=== PATIENT | male | born 1960 | race Caucasian/White ===

== ENCOUNTER 2016-12-04 08:36 | Emergency (ER) | payer BC ==
[2016-12-04] MEDS ORDERED: Sodium Chloride 0.9% 10 ML Syringe FLUSH PRN (10:33)
[2016-12-04] MEDS ORDERED: Sodium Chloride 0.9% 1,000 ML IV SCH (10:45)
--- NOTE | 2016-12-04 10:46 | EDM.PDOC ---
ED HPI GENERAL MEDICAL PROBLEM - General Chief Complaint: General Stated Complaint: SWELLING ON NECK Time Seen by Provider: 12/04/16 10:41 Source of Information: Reports: Patient, Family, RN Notes Reviewed History Limitations: Reports: No Limitations - History of Present Illness INITIAL COMMENTS - FREE TEXT/NARRATIVE: A 56-year-old gentleman presents emergency department day complaint of right- sided neck swelling, he is post operative cervical disc surgery approximately 6 months ago. He has a known history of pulmonary embolism was placed on xeralto unfortunately 6 days postop he developed a hematoma in his neck that required evacuation. That was on October 21. He was subsequently placed on eloquis has done well with that medication until today when he awoke developing a hematoma on the right side of his neck anterior portion states no difficulty with breathing however does have difficulty with swallowing he is able to still swallow his saliva but has not tried any water this morning, - Related Data Allergies Allergy/AdvReac Type Severity Reaction Status Date / Time oxycodone AdvReac Mild Itching Verified 12/15/14 11:23 Home Meds: Home Meds Aspirin [Halfprin] 81 mg PO DAILY 12/12/14 [History] Cyclobenzaprine [Flexeril] 5 mg PO Q6HR PRN 12/12/14 [History] Omeprazole [Prilosec] 20 mg PO DAILY 12/12/14 [History] amLODIPine/Valsartan [Amlodipine-Valsartan 10-160 mg] 1 tab PO DAILY 12/12/14 [ History] Carisoprodol [Soma] 350 mg PO QID PRN 12/15/14 [History] HYDROmorphone HCl [Dilaudid] 4 mg PO Q4H 12/15/14 [History] Carvedilol 3.125 mg PO BID 02/26/16 [History] Zolpidem [Ambien] 10 mg PO DAILY 02/26/16 [History] Apixaban [Eliquis] 5 mg PO BID 12/04/16 [History] Hydrocodone/Acetaminophen [Hydrocodon-Acetaminophen 5-325] 1 each PO PRN [History] Past Medical History Cardiovascular History: Reports: Hypertension Musculoskeletal History: Reports: Other (See Below) Other Musculoskeletal History: Mri years ago with disc involvment. neck fusion on October 2016 then swelling and hematoma on right side of neck. surgery for I & D and on vent for 2 days Oncologic (Cancer) History: Reports: Malignant Melanoma, Prostate Other Oncologic History: 7 years ago- radiation Dermatologic History: Reports: Melanoma - Past Surgical History Other Cardiovascular Surgeries/Procedures: angiogram between 5- 10 yrs ago Other Neurological Surgeries/Procedures: fusion of neck for herniated disk Social & Family History - Tobacco Use Smoking Status *Q: Never Smoker Second Hand Smoke Exposure: Yes - Caffeine Use Caffeine Use: Reports: Coffee - Alcohol Use Days Per Week of Alcohol Use: 4 Number of Drinks Per Day: 1 Total Drinks Per Week: 4 - Recreational Drug Use Recreational Drug Use: No ED ROS GENERAL - Review of Systems Review Of Systems: See Below Constitutional: Reports: No Symptoms HEENT: Reports: Throat Pain, Throat Swelling Respiratory: Reports: No Symptoms Cardiovascular: Reports: No Symptoms GI/Abdominal: Reports: Difficulty Swallowing. Denies: Nausea, Vomiting : Reports: No Symptoms Musculoskeletal: Reports: No Symptoms Skin: Reports: No Symptoms Neurological: Reports: No Symptoms ED EXAM, GENERAL - Physical Exam Exam: See Below Exam Limited By: No Limitations General Appearance: Alert, WD/WN, No Apparent Distress Eye Exam: Bilateral Eye: Normal Inspection Neck: Limited Range of Motion, Other (Tender hematoma is appreciated right side of the neck lateral to the cricoid cartilage). No: Lymphadenopathy (R), Lymphadenopathy (L) Respiratory/Chest: No Respiratory Distress, Lungs Clear, Normal Breath Sounds, No Accessory Muscle Use Cardiovascular: Regular Rate, Rhythm, No Murmur GI/Abdominal: Soft, Non-Tender Course - Vital Signs Last Recorded V/S: Last Vital Signs Temp 101.3 F H 12/04/16 12:26 Pulse 105 H 12/04/16 12:26 Resp 15 12/04/16 12:26 BP 151/89 H 12/04/16 12:26 Pulse Ox 94 L 12/04/16 12:26 - Orders/Labs/Meds Orders: Active Orders 24 hr Category Date Time Status Peripheral IV Care [RC] . DIRECTED Care 12/04/16 10:34 Active CULTURE BLOOD [BC] Urgent Lab 12/04/16 12:33 Ordered CULTURE BLOOD [BC] Urgent Lab 12/04/16 12:33 Ordered Iopamidol [Isovue-300 (61%)] Med 12/04/16 10:49 Active 100 ml IV . DIRECTED PRN Piperacillin/Tazobactam [Zosyn] 3.375 gm Med 12/04/16 12:45 Ordered Sodium Chloride 0.9% [Normal Saline] 50 ml IV Q6H Sodium Chloride 0.9% [Normal Saline] 1,000 ml Med 12/04/16 10:45 Active IV ASDIRECTED Sodium Chloride 0.9% [Normal Saline] 70 ml Med 12/04/16 11:00 Active IV ASDIRECTED Sodium Chloride 0.9% [Saline Flush] Med 12/04/16 10:33 Active 10 ml FLUSH ASDIRECTED PRN Vancomycin 1 gm Med 12/04/16 12:32 Ordered Sodium Chloride 0.9% [Normal Saline] 250 ml IV ONETIME Blood Culture x2 Reflex Set [OM.PC] Urgent Ot 12/04/16 12:33 Ordered Peripheral IV Insertion Adult [OM.PC] Urgent Ot 12/04/16 10:33 Ordered Medication Orders Sodium Chloride (Normal Saline) 1,000 mls @ 500 mls/hr IV ASDIRECTED [facility] Last Admin: 12/04/16 10:59 Dose: 500 mls/hr Sodium Chloride (Normal Saline) 70 mls @ 3 mls/sec IV ASDIRECTED [facility] Last Admin: 12/04/16 11:44 Dose: 3 mls/sec Piperacillin Sod/Tazobactam (Sod 3.375 gm/ Sodium Chloride) 50 mls @ 100 mls/ hr IV Q6H ADRIANNA Vancomycin HCl 1 gm/ Sodium (Chloride) 250 mls @ 150 mls/hr IV ONETIME ONE Stop: 12/04/16 14:11 Iopamidol (Isovue-300 (61%)) 100 ml IV . DIRECTED PRN PRN Reason: RADIOLOGY EXAM Stop: 12/05/16 10:50 Last Admin: 12/04/16 11:44 Dose: 100 ml Sodium Chloride (Saline Flush) 10 ml FLUSH ASDIRECTED PRN PRN Reason: Keep Vein Open Labs: Laboratory Tests 12/04/16 12/04/16 12/04/16 Range/Units 10:52 10:52 10:52 WBC 17.8 H (4.5-11.0) K/uL RBC 5.08 (4.30-5.90) M/uL Hgb 14.3 (12.0-15.0) g/dL Hct 43.2 (40.0-54.0) % MCV 85 (80-98) fL MCH 28 (27-31) pg MCHC 33 (32-36) % Plt Count 471 H (150-400) K/uL Neut % (Auto) 78 H (36-66) % Lymph % (Auto) 11 L (24-44) % [place] % (Auto) 10 H (2-6) % Eos % (Auto) 1 L (2-4) % Baso % (Auto) 0 (0-1) % PT 10.4 (9.5-12.0) sec INR 0.98 (0.80-1.20) APTT 26.7 L (27.0-36.0) sec Sodium 139 L (140-148) mmol/L Potassium 4.1 (3.6-5.2) mmol/L Chloride 102 (100-108) mmol/L Carbon Dioxide 24 (21-32) mmol/L Anion Gap 17.1 H (5.0-14.0) mmol/L BUN 9 (7-18) mg/dL Creatinine 0.9 (0.8-1.3) mg/dL Est Cr Clr Drug Dosing 85.69 mL/min Estimated GFR (MDRD) > 60 (>60) Glucose 110 H (74-106) mg/dL Lactic Acid (0.4-2.0) mmol/L Calcium 9.0 (8.5-10.1) mg/dL Total Bilirubin 0.5 (0.2-1.0) mg/dL AST 35 (15-37) U/L ALT 60 (12-78) U/L Alkaline Phosphatase 113 (46-116) U/L C-Reactive Protein (0.0-0.3) mg/dL Total Protein 7.6 (6.4-8.2) g/dL Albumin 4.1 (3.4-5.0) g/dL Globulin 3.5 (2.3-3.5) g/dL Albumin/Globulin Ratio 1.2 (1.2-2.2) 12/04/16 12/04/16 Range/Units 10:52 12:15 WBC (4.5-11.0) K/uL RBC (4.30-5.90) M/uL Hgb (12.0-15.0) g/dL Hct (40.0-54.0) % MCV (80-98) fL MCH (27-31) pg MCHC (32-36) % Plt Count (150-400) K/uL Neut % (Auto) (36-66) % Lymph % (Auto) (24-44) % [place] % (Auto) (2-6) % Eos % (Auto) (2-4) % Baso % (Auto) (0-1) % PT (9.5-12.0) sec INR (0.80-1.20) APTT (27.0-36.0) sec Sodium (140-148) mmol/L Potassium (3.6-5.2) mmol/L Chloride (100-108) mmol/L Carbon Dioxide (21-32) mmol/L Anion Gap (5.0-14.0) mmol/L BUN (7-18) mg/dL Creatinine (0.8-1.3) mg/dL Est Cr Clr Drug Dosing mL/min Estimated GFR (MDRD) (>60) Glucose (74-106) mg/dL Lactic Acid 2.0 (0.4-2.0) mmol/L Calcium (8.5-10.1) mg/dL Total Bilirubin (0.2-1.0) mg/dL AST (15-37) U/L ALT (12-78) U/L Alkaline Phosphatase (46-116) U/L C-Reactive Protein 1.44 H (0.0-0.3) mg/dL Total Protein (6.4-8.2) g/dL Albumin (3.4-5.0) g/dL Globulin (2.3-3.5) g/dL Albumin/Globulin Ratio (1.2-2.2) Meds: Medications Generic Name Dose Route Start Last Admin Trade Name Freq PRN Reason Stop Dose Admin Sodium Chloride 1,000 mls @ 500 mls/hr 12/04/16 10:45 12/04/16 10:59 Normal Saline IV 500 mls/hr ASDIRECTED ADRIANNA Administration Sodium Chloride 70 mls @ 3 mls/sec 12/04/16 11:00 12/04/16 11:44 Normal Saline IV 3 mls/sec ASDIRECTED ADRIANNA Administration Piperacillin Sod/Tazobactam 50 mls @ 100 mls/hr 12/04/16 12:45 Sod 3.375 gm/ Sodium Chloride IV Q6H ADRIANNA Vancomycin HCl 1 gm/ Sodium 250 mls @ 150 mls/hr 12/04/16 12:32 Chloride IV 12/04/16 14:11 ONETIME ONE Iopamidol 100 ml 12/04/16 10:49 12/04/16 11:44 Isovue-300 (61%) IV 12/05/16 10:50 100 ml . DIRECTED PRN Administration RADIOLOGY EXAM Sodium Chloride 10 ml 12/04/16 10:33 Saline Flush FLUSH ASDIRECTED PRN Keep Vein Open Discontinued Medications Generic Name Dose Route Start Last Admin Trade Name Freq PRN Reason Stop Dose Admin Acetaminophen 650 mg 12/04/16 12:32 Tylenol PO 12/04/16 12:33 NOW ONE Hydromorphone HCl 1 mg 12/04/16 12:32 Dilaudid IVPUSH 12/04/16 12:33 ONETIME ONE Sodium Chloride 10 ml 12/04/16 10:49 Saline Flush FLUSH 12/04/16 10:50 ONETIME ONE Departure - Departure Time of Disposition: 12:37 Disposition: DC/Tfer to Acute Hospital 02 Condition: good Clinical Impression: Neck abscess - Discharge Information Forms: ED Department Discharge - My Orders Last 24 Hours: My Active Orders 12/04/16 10:33 Sodium Chloride 0.9% [Saline Flush] 10 ml FLUSH ASDIRECTED PRN Peripheral IV Insertion Adult [OM.PC] Urgent 12/04/16 10:34 Peripheral IV Care [RC] . DIRECTED 12/04/16 10:45 Sodium Chloride 0.9% [Normal Saline] 1,000 ml IV ASDIRECTED 12/04/16 10:49 Iopamidol [Isovue-300 (61%)] 100 ml IV . DIRECTED PRN 12/04/16 11:00 Sodium Chloride 0.9% [Normal Saline] 70 ml IV ASDIRECTED 12/04/16 12:32 Vancomycin 1 gm Sodium Chloride 0.9% [Normal Saline] 250 ml IV ONETIME 12/04/16 12:33 CULTURE BLOOD [BC] Urgent CULTURE BLOOD [BC] Urgent Blood Culture x2 Reflex Set [OM.PC] Urgent 12/04/16 12:45 Piperacillin/Tazobactam [Zosyn] 3.375 gm Sodium Chloride 0.9% [Normal Saline] 50 ml IV Q6H - Assessment/Plan Last 24 Hours: My Active Orders 12/04/16 10:33 Sodium Chloride 0.9% [Saline Flush] 10 ml FLUSH ASDIRECTED PRN Peripheral IV Insertion Adult [OM.PC] Urgent 12/04/16 10:34 Peripheral IV Care [RC] . DIRECTED 12/04/16 10:45 Sodium Chloride 0.9% [Normal Saline] 1,000 ml IV ASDIRECTED 12/04/16 10:49 Iopamidol [Isovue-300 (61%)] 100 ml IV . DIRECTED PRN 12/04/16 11:00 Sodium Chloride 0.9% [Normal Saline] 70 ml IV ASDIRECTED 12/04/16 12:32 Vancomycin 1 gm Sodium Chloride 0.9% [Normal Saline] 250 ml IV ONETIME 12/04/16 12:33 CULTURE BLOOD [BC] Urgent CULTURE BLOOD [BC] Urgent Blood Culture x2 Reflex Set [OM.PC] Urgent 12/04/16 12:45 Piperacillin/Tazobactam [Zosyn] 3.375 gm Sodium Chloride 0.9% [Normal Saline] 50 ml IV Q6H Plan: Assessment Acuity = acute Site and laterality = fluid collection concern for abscess development complicating a patient that is 6 weeks postoperative from cervical discectomy and hematoma requiring evacuation as well as hypertension and history of malignant melanoma Etiology = suspicious for bacterial cause Manifestations = difficulty swallowing, fever Location of injury = home Lab values = white count elevated at 17.8 consistent leukocytosis, sodium low at [address] scan of the neck demonstrates a fluid collection 2.5 cm greatest diameter with a track leading back to the cervical spine there is soft tissue swelling with mild deviation of the trachea no airway compromise Plan Discussed the case with Dr. Alonzo hospitalist on [facility] kindly accepted the patient in transfer blood cultures have been drawn antibiotics of Zosyn and vancomycin initiated as well as one dose of Tylenol he will be transferred via EMS services Patient was in agreement with the plan all questions were answered, This note was dictated using [employer] voice recognition software please call with any questions.
[2016-12-04] MEDS ORDERED: Sodium Chloride 0.9% 10 ML Syringe FLUSH ONE (10:49)
[2016-12-04] MEDS ORDERED: Iopamidol 612 MG/ML 100 ML Bottle IV PRN (10:49)
--- NOTE | 2016-12-04 12:23 | CT ---
Soft Tissue Neck w Cont HISTORY: Hematoma right side postop eliquis Axial spiral enhanced CT scan of the cervical spine was obtained along with sagittal and coronal rec onstructions. The patient has a history of recent neck surgery. FINDINGS: Skin marker was placed over the patient's palpable mass lower neck to the right of midline . Just deep to this marker is a roundish fluid collection with mild rim enhancement measuring 2.5 x 1.5 x 2.0 cm in size. From the posterior margin of this fluid collection there is fluid tracking in the right parapharyngeal region. This tracks lateral to the thyroid gland and medial to the carotid artery and jugular vein. This tracks to posteriorly an oblong fluid collection anterior to the lower cervical spine and to the right of the esophagus and thyroid gland. This portion of the fluid colle ction measures 3.9 cm in greatest oblique AP diameter x 1.0 cm transversely by approximately 4.0 cm longitudinally. The cephalad edge of the fluid collection is at about the level of the patient's intervertebral body fusion spacer at C5-6. Possible etiologies could include abscess, seroma, or hematoma. There is arian e surrounding soft tissue fullness which could be inflammatory or related to the prior surgery. Ther e is mild tracheal deviation to the left. Upper airway is widely patent. I see no bony destructive c hanges. There is mild right paratracheal stranding in the superior mediastinum extending to just above the l evel of the aortic arch. A couple of small, possibly enhancing, right pretracheal lymph nodes can be seen. These are not enlarged by size criteria. No other neck mass or adenopathy is seen. Lung apice s are clear. IMPRESSION: 1. At the site of the patient's palpable lump anterior neck to the right of midline there is a fluid collection with mild rim enhancement just deep to the skin surface measuring 2.5 cm in greatest patricio meter as described above. There is a fluid tract from the posterior edge of this fluid collection to a larger, elongated fluid collection anterior to the lower cervical spine and extending to the righ t paratracheal region lateral to the right lobe of the thyroid gland. This portion of the fluid babs ures approximately 3.9 x 1.0 x 4.0 cm in size. There is some surrounding soft tissue swelling with m ild deviation of the trachea to the left. No airway compromise is seen. Findings are suspicious for abscess. Postoperative seroma or hematoma could also be considered. 2. Mild fat stranding is seen in the adjacent right paratracheal region in the superior mediastinum. A couple of mildly enhancing right paratracheal lymph nodes are present. These are not enlarged by size criteria. Early mediastinitis is not excluded. Findings were discussed with Officer in the Emergency Department 1205 hours. Total DLP 249 mGycm
[2016-12-04] MEDS ORDERED: Piperacillin/Tazobactam/Dext 3.375 GM in Premix Bag 1 BAG IV SCH (12:30)
[2016-12-04] MEDS ORDERED: Acetaminophen 325 MG Tab PO ONE (12:32)
[2016-12-04] MEDS ORDERED: HYDROmorphone 1 MG/ML Syringe IVPUSH ONE (12:32)
[2016-12-04] MEDS ORDERED: Piperacillin/Tazobactam 3.375 GM in Sodium Chloride 0.9% 50 ML IV SCH (12:45)
[2016-12-04] MEDS ORDERED: amLODIPine 5 MG Tab PO ONE (13:00)
[2016-12-04] MEDS ORDERED: Carvedilol 3.125 MG Tab PO ONE (13:00)
[2016-12-04 13:24] VITALS: BP 127/71
== END 2016-12-04 14:33 ==
LOC: JP.ED 08:36
DX: L02.11 Cutaneous abscess of neck (principal); I10 Essential (primary) hypertension; Z79.82 Long term (current) use of aspirin; Z79.899 Other long term (current) drug therapy; Z88.6 Allergy status to analgesic agent; Z85.820 Personal history of malignant melanoma of skin; Z98.890 Other specified postprocedural states
CPT/HCPCS: 36415; 70491; 80053; 83605; 85025; 85610; 85730; 86140; 87040; 96361; 96365; 96367; 96375; 99285; A9270; J1170; J2543; J3370; J7030; J7040; J7050; Q9967

== ENCOUNTER 2021-01-26 07:39 | Emergency (ER) | payer BC ==
--- NOTE | 2021-01-26 07:57 | EDM.PDOC ---
ED HPI GENERAL MEDICAL PROBLEM - General Chief Complaint: Lower Extremity Injury/Pain Stated Complaint: SWOLLEN RIGHT ANKLE, FOOT Time Seen by Provider: 01/26/21 08:05 Source of Information: Reports: Patient History Limitations: Reports: No Limitations - History of Present Illness INITIAL COMMENTS - FREE TEXT/NARRATIVE: pt arriverd with a very painful rt ankle. He has had gout in the past but this does seem differnt. he has been using indocin without relief. Onset: Gradual Duration: Day(s):, Other (pt is on his feet alot. ) Location: Reports: Lower Extremity, Right Quality: Reports: Sharp, Stabbing, Other (painful to stand on.) Improves with: Reports: None Worsens with: Reports: None Associated Symptoms: Reports: No Other Symptoms Right Ankle Pain Score (Numeric/FACES): 10 - Related Data Allergies Allergy/AdvReac Type Severity Reaction Status Date / Time oxycodone AdvReac Mild Itching Verified 01/26/21 08:13 Home Meds: Home Meds Amlodipine Besylate/Valsartan [Amlodipine-Valsartan 10-160 mg] 1 tab PO DAILY 12/12/14 [History] Aspirin [Halfprin] 81 mg PO DAILY 12/12/14 [History] HYDROmorphone HCl [Dilaudid] 4 mg PO Q4H PRN 12/15/14 [History] carvediloL [Carvedilol] 3.125 mg PO BID 02/26/16 [History] cephALEXin [Cephalexin] 500 mg PO BID 01/26/21 [History] Past Medical History Cardiovascular History: Reports: Hypertension Musculoskeletal History: Reports: Other (See Below) Other Musculoskeletal History: Mri years ago with disc involvment. neck fusion on October 2016 then swelling and hematoma on right side of neck. surgery for I & D and on vent for 2 days Oncologic (Cancer) History: Reports: Malignant Melanoma, Prostate Other Oncologic History: 7 years ago- radiation Dermatologic History: Reports: Melanoma - Past Surgical History Other Cardiovascular Surgeries/Procedures: angiogram between 5- 10 yrs ago Other Neurological Surgeries/Procedures: fusion of neck for herniated disk Social & Family History - Caffeine Use Caffeine Use: Reports: Coffee Review of Systems - Review of Systems Review Of Systems: See Below Constitutional: Reports: No Symptoms Eyes: Reports: No Symptoms Ears: Reports: No Symptoms Nose: Reports: No Symptoms Mouth/Throat: Reports: No Symptoms Respiratory: Reports: No Symptoms Cardiovascular: Reports: No Symptoms GI/Abdominal: Reports: No Symptoms Genitourinary: Reports: No Symptoms Musculoskeletal: Reports: Other (painful swollen rt ankle. This has been going on for several days. ) ED EXAM, GENERAL - Physical Exam Exam: See Below Free Text/Narrative:: pt has a swollen painfuil rt ankle. This is tenderto palpate. It does not look r ed. Exam Limited By: No Limitations General Appearance: Alert, Anxious Extremities: Other (pt is very uncomfortable to weight bear. He has not had a injury. He has been using indocin. The ankle is swollen and the lateral aspect of the foot is swollen. This is very tender to palpate. ) Neurological: Alert, Oriented, Normal Cognition Psychiatric: Normal Affect Course - Vital Signs Last Recorded V/S: Last Vital Signs Temp 36.7 C 01/26/21 08:22 Pulse 70 01/26/21 08:22 Resp 12 01/26/21 08:22 BP 145/75 H 01/26/21 08:22 Pulse Ox 99 01/26/21 08:22 - Orders/Labs/Meds Orders: Active Orders 24 hr Category Date Time Status Consult to Orthopedic Clinic [CONS] Routine Cons 01/26/21 08:59 Active Ankle Min 3V Rt [CR] Stat Exams 01/26/21 07:57 Taken Labs: Laboratory Tests 01/26/21 01/26/21 01/26/21 Range/Units 07:58 08:08 08:08 WBC 8.3 (4.5-11.0) K/uL RBC 4.63 (4.30-5.90) M/uL Hgb 13.7 (12.0-15.0) g/dL Hct 40.6 (40.0-54.0) % MCV 88 (80-98) fL MCH 30 (27-31) pg MCHC 34 (32-36) % Plt Count 332 (150-400) K/uL Neut % (Auto) 72.5 H (36-66) % Lymph % (Auto) 13.2 L (24-44) % [place] % (Auto) 9.7 H (2-6) % Eos % (Auto) 4.2 H (2-4) % Baso % (Auto) 0.4 (0-1) % Uric Acid 5.4 (3.5-7.2) mg/dL C-Reactive Protein 2.96 H (0.0-0.3) mg/dL Meds: Medications Discontinued Medications Generic Name Dose Route Start Last Admin Trade Name Freq PRN Reason Stop Dose Admin Triamcinolone Acetonide 60 mg 01/26/21 08:55 Triamcinolone Acetonide 40 Mg/Ml 1 Ml Sdv INJECT 01/26/21 08:56 ASDIRECTED ONE - Re-Assessments/Exams Free Text/Narrative Re-Assessment/Exam: 01/26/21 09:12 pt did have a xray of the ankle which showed alot of degenerative changes in the joint. Departure - Departure Time of Disposition: 08:57 Disposition: Home, Self-Care 01 Condition: Fair Clinical Impression: Acute arthritis - Discharge Information Referrals: Kimani Carbajal MD [Primary Care Provider] - Forms: ED Department Discharge Care Plan Goals: soak in warm water bid followed by a cool pack, elevate when sitting, appt with ortho. predisone 10 mg daily for 1 week, naprosyn 500m tid for 1 week with food. norco 5/325 q6h prn for pain, # 10. Sepsis Event Note (ED) - Focused Exam Vital Signs: Vital Signs Temp Pulse Resp BP Pulse Ox 01/26/21 08:22 36.7 C 70 12 145/75 H 99 01/26/21 08:03 36.7 C 70 12 145/75 H 99 - My Orders Last 24 Hours: My Active Orders 01/26/21 07:57 Ankle Min 3V Rt [CR] Stat 01/26/21 08:59 Consult to Orthopedic Clinic [CONS] Routine - Assessment/Plan Last 24 Hours: My Active Orders 01/26/21 07:57 Ankle Min 3V Rt [CR] Stat 01/26/21 08:59 Consult to Orthopedic Clinic [CONS] Routine
[2021-01-26 08:04] VITALS: BP 145/75; PULSE 70
[2021-01-26] MEDS ORDERED: Triamcinolone Acetonide 40 MG/ML 1 ML SDV INJECT ONE (08:55)
--- NOTE | 2021-01-26 09:16 | CR ---
Ankle Min 3V Rt CLINICAL HISTORY: Swelling FINDINGS: The soft tissues are generally swollen. No acute fracture or dislocation is noted. Ankle mortise is intact. Articular surfaces are smooth. There is some mild periarticular spurring at the tibiotalar joint. Impression: No fracture or dislocation or osseous lesion Soft tissue swelling Minimal degenerative spurring
== END 2021-01-26 09:40 | disposition home or self-care (01) ==
LOC: JP.ED 07:39
DX: M19.071 Primary osteoarthritis, right ankle and foot (principal); I10 Essential (primary) hypertension; Z88.5 Allergy status to narcotic agent; Z79.82 Long term (current) use of aspirin
CPT/HCPCS: 36415; 73610-26-RT; 73610-RT; 84550; 85025; 86140; 99283; 99283-25